=== PATIENT | female | born 1950 | race Caucasian/White ===

== ENCOUNTER → 2018-10-19 05:34 | Day surgery (SDC) | payer MEDICARE ==
[~2018-10-19 05:34] MED LIST: Acetaminophen TAB* 325 MG PO PRN; Buffered Lidocaine 1% SYRIN* 1 ML/SYRINGE INTRADERM ONE; Dexamethasone IV* 4 MG/ML 1 ML (4 MG) IV SLOW PU ONE; Dexamethasone IV* 4 MG/ML 1 ML (4 MG) ONE; DiMENhydriNATE IV* 50 MG/ML VIAL IV PUSH PRN; Famotidine IV* 10 MG/ML 2 ML (20 mg) IV ONE; Famotidine IV* 10 MG/ML 2 ML (20 mg) ONE; Heparin VIAL(*) 5000 UNITS/ML VIAL (FIVE THOUSAND) ONE; Ibuprofen TAB* 600 MG PO PRN; Lactated Ringers 1000 ML Bag* 1,000 ML IV SCH; Lidocaine 2% PF * 5 ML VIAL ONE; Midazolam* 1 MG/ML 2 ML VIAL (2 MG) ONE; Morphine VIAL* 4 MG/ML VIAL (1 ml vial) IV PRN; Naloxone* 0.4 MG/ML 1 ML VIAL IV PRN; Ondansetron INJ* 2 MG/ML VIAL ONE; PROCHLORPERAZINE INJ 5 MG/ML 2 ML VIAL IV PRN; Propofol* 10 MG/ML 20 ML BTL ONE; Silver Nitrate/Potassium Nitr* 1 EA STICK ONE; fentaNYL* 50 MCG/ML 2 ML VIAL (100 MCG VIAL) IV PRN; fentaNYL* 50 MCG/ML 2 ML VIAL (100 MCG VIAL) ONE; oxyCODONE/Acetamin 5/325 MG* TAB PO PRN
[2018-10-19 10:05] VITALS: BP 116/86
--- NOTE | 2018-10-19 11:22 | OP ---
DATE OF OPERATION: 10/19/18 - [facility] DATE OF : 46 SURGEON: Ebony Matos MD. ANESTHESIOLOGIST: Dr. Sher. PRE-OP DIAGNOSES: 1. Thickened endometrium on ultrasound. 2. Endometrial polyp on office biopsy. POST-OP DIAGNOSES: 1. Thickened endometrium on ultrasound. 2. Endometrial polyp on office biopsy. OPERATIVE PROCEDURE: Dilation, hysteroscopy, MyoSure polypectomy, curettage. ESTIMATED BLOOD LOSS: Less than 20 cc. SPECIMENS: Endometrial curettings and polyps. FLUIDS: Per Anesthesia. DRAINS: Deficit in the MyoSure was 400 cc. FINDINGS: Small anteverted uterus. No adnexal masses palpated. There were multiple endometrial polyps. There was a large polyp originating from the anterior wall of the fundus and another smaller one at the fundus. There were also two endocervical polyps. Both tubal ostia were visualized. Aside from the polyps, the endometrium appeared atrophic. There was grade 2 to 3 cystocele and a grade 2 rectocele. COMPLICATIONS: None. COUNTS: Sponge count correct x2. CONDITION: The patient was brought to recovery room awake, in stable condition. DESCRIPTION OF PROCEDURE: The patient was brought to the operating room. When general anesthesia was found to be adequate, the patient was prepped and draped in the usual sterile fashion in the dorsal lithotomy position. Time-out was performed. Exam under anesthesia was performed. Weighted speculum was placed in the vagina and the anterior lip of the cervix was grasped with a single- tooth tenaculum. The cervix was gently and easily dilated with graduated Hegar dilators. The uterus sounded to 7. The MyoSure was introduced with the above findings noted. MyoSure LITE was used to remove the 4 polyps seen in their entirety. The remainder of the endometrial cavity and endocervix appeared normal with atrophic endometrium. Both tubal ostia were visualized. All instruments were removed. The single-tooth tenaculum was removed from the anterior lip of the cervix. There was slight bleeding at the left tenaculum site. Pressure was held with a polyp forceps for several minutes. When the forceps was removed, excellent hemostasis was visualized. The patient was brought to the recovery room awake and in stable condition. [id number] #: [id number] [facility]
== END | disposition home or self-care (01) ==
LOC: OR 05:34
PROVIDERS: ATTEND Obstetrics & Gynecology
DX: N84.0 Polyp of corpus uteri (principal); I10 Essential (primary) hypertension; E78.5 Hyperlipidemia, unspecified; E03.9 Hypothyroidism, unspecified; D68.51 Activated protein C resistance; I69.398 Other sequelae of cerebral infarction; R20.8 Other disturbances of skin sensation
CPT/HCPCS: 88305; A9270-GY; J1100; J1644; J2250; J2405; J2704; J3010

== ENCOUNTER 2020-06-18 08:24 | Observation (INO) ==
[~2020-06-18 08:24] MED LIST changes: -Acetaminophen TAB* 325 MG PO PRN; +Buffered Lidocaine 1% SYRIN 1 ml INTRADERM ONE; -Buffered Lidocaine 1% SYRIN* 1 ML/SYRINGE INTRADERM ONE; +Dexamethasone IV 4 MG/ML VIAL 1 ml VIAL IV SLOW PU ONE; -Dexamethasone IV* 4 MG/ML 1 ML (4 MG) IV SLOW PU ONE; -Dexamethasone IV* 4 MG/ML 1 ML (4 MG) ONE; -DiMENhydriNATE IV* 50 MG/ML VIAL IV PUSH PRN; -Famotidine IV* 10 MG/ML 2 ML (20 mg) IV ONE; -Famotidine IV* 10 MG/ML 2 ML (20 mg) ONE; -Heparin VIAL(*) 5000 UNITS/ML VIAL (FIVE THOUSAND) ONE; -Ibuprofen TAB* 600 MG PO PRN; -Lactated Ringers 1000 ML Bag* 1,000 ML IV SCH; +Lactated Ringers 1000 ml BAG 1,000 ML IV SCH; -Lidocaine 2% PF * 5 ML VIAL ONE; -Midazolam* 1 MG/ML 2 ML VIAL (2 MG) ONE; -Morphine VIAL* 4 MG/ML VIAL (1 ml vial) IV PRN; -Naloxone* 0.4 MG/ML 1 ML VIAL IV PRN; -Ondansetron INJ* 2 MG/ML VIAL ONE; -PROCHLORPERAZINE INJ 5 MG/ML 2 ML VIAL IV PRN; -Propofol* 10 MG/ML 20 ML BTL ONE; -Silver Nitrate/Potassium Nitr* 1 EA STICK ONE; -fentaNYL* 50 MCG/ML 2 ML VIAL (100 MCG VIAL) IV PRN; -fentaNYL* 50 MCG/ML 2 ML VIAL (100 MCG VIAL) ONE; -oxyCODONE/Acetamin 5/325 MG* TAB PO PRN
[2020-06-18] MEDS ORDERED: Dexamethasone IV 4 MG/ML VIAL 1 ml VIAL ONE (08:52)
[2020-06-18] MEDS ORDERED: ceFAZolin 2 GM PREMIX 2 GM/50 ML BAG ONE (08:52)
[2020-06-18] MEDS ORDERED: fentaNYL 100 mcg/2 ml 50 MCG/ML VIAL ONE ×5 (10:51→14:35)
[2020-06-18] MEDS ORDERED: Midazolam 2 mg/2 ml VIAL 1 mg/ml 2 ml VIAL (2 mg) ONE (10:52)
[2020-06-18] MEDS ORDERED: Phenylephrine IV 10 MG/ML 1 ml VIAL ONE (10:53)
[2020-06-18] MEDS ORDERED: Lidocaine 2% PF 5 ML VIAL ONE ×2 (10:55→10:56)
[2020-06-18] MEDS ORDERED: ROPIVACAINE 5 MG/ML 30 ML BTL (0.5%) ONE ×2 (10:55→12:05)
[2020-06-18] MEDS ORDERED: Naloxone 0.4 mg VIAL 0.4 mg/ml 1 ml VIAL IV PRN (12:14)
[2020-06-18] MEDS ORDERED: Ondansetron 4 mg VIAL 2 MG/ML 2 ml VIAL IV PRN ×2 (12:14→13:21)
[2020-06-18] MEDS ORDERED: HYDROmorphone 1 MG/1 ML SYRINGE IV PRN (12:14)
[2020-06-18] MEDS ORDERED: Rocuronium 50 mg VIAL 10 mg/ml 5 ml VIAL (50 mg) ONE (12:20)
[2020-06-18] MEDS ORDERED: HYDROmorphone 1 MG/1 ML SYRINGE ONE ×2 (12:22→12:41)
[2020-06-18] MEDS ORDERED: Ondansetron ODT 4 mg TAB 4 MG TAB PO PRN (13:21)
[2020-06-18] MEDS ORDERED: Lactulose 30 ml UDC PO PRN (13:21)
[2020-06-18] MEDS ORDERED: diPHENhydraMINE IV 50 MG/ML 1 ml VIAL (BENADRYL) IV PRN (13:21)
[2020-06-18] MEDS ORDERED: diPHENhydraMINE 25 mg TAB PO PRN (13:21)
[2020-06-18] MEDS ORDERED: Morphine 2 MG/ML SYRINGE IV PRN (13:21)
[2020-06-18] MEDS ORDERED: Magnesium Hydroxide LIQ 30 ML UDC PO PRN (13:21)
[2020-06-18] MEDS ORDERED: Ondansetron 4 mg VIAL 2 MG/ML 2 ml VIAL ONE (13:22)
[2020-06-18] MEDS ORDERED: Butalb/Acetamin/Caff TAB 325-50-40MG PO PRN (13:25)
[2020-06-18] MEDS ORDERED: oxyCODONE/Acetamin 5/325 mg TAB ONE (14:35)
[2020-06-18] MEDS: fentaNYL 100 mcg/2 ml 50 MCG/ML VIAL IV PRN ×2 (14:40→15:08)
[2020-06-18] MEDS: oxyCODONE/Acetamin 5/325 mg TAB PO PRN ×2 (14:41→22:45)
[2020-06-18] MEDS ORDERED: Lactated Ringers 1000 ml BAG 1,000 ML IV SCH (16:06)
[2020-06-18] MEDS: Lactated Ringers 1000 ml BAG 1,000 ML IV SCH (16:07)
[2020-06-18] MEDS ORDERED: Metoclopramide 5 MG/ML VIAL (10 mg) ONE (17:42)
[2020-06-18] MEDS ORDERED: Metoclopramide 5 MG/ML VIAL (10 mg) IV PRN (17:45)
[2020-06-18] MEDS: ceFAZolin 1 GM ADVAN 1 GM in NS 0.9% 50 ML 50 ML IVPB SCH (19:54)
[2020-06-18] MEDS: Magnesium Hydroxide LIQ 30 ML UDC PO SCH (22:46)
[2020-06-19] MEDS: Lactated Ringers 1000 ml BAG 1,000 ML IV SCH (02:18)
[2020-06-19] MEDS: ceFAZolin 1 GM ADVAN 1 GM in NS 0.9% 50 ML 50 ML IVPB SCH ×2 (04:22→12:38)
[2020-06-19] MEDS: oxyCODONE/Acetamin 5/325 mg TAB PO PRN ×2 (06:14→12:38)
[2020-06-19 06:27] LABS: Hematocrit 33 % (35-47); Hemoglobin 10.7 g/dL (12.0-16.0); Platelet Count 162 10^3/uL (150-450)
[2020-06-19 06:52] LABS: CO2 Carbon Dioxide 20 mmol/L (22-32); Calcium 7.6 mg/dL (8.6-10.3); Chloride 111 mmol/L (101-111); Sodium 139 mmol/L (135-145)
[2020-06-19 06:56] LABS: Anion Gap 8 mmol/L (2-11)
[2020-06-19 06:58] LABS: BUN/Creatinine Ratio 22.2 (8-20); Blood Urea Nitrogen 16 mg/dL (6-24); EGFR African American 96.6 (>60); EGFR Non-African American 79.9 (>60); Glucose 125 mg/dL (70-100)
[2020-06-19] MEDS ORDERED: Vitamin THERAPEUTIC TAB PO SCH (09:00)
[2020-06-19] MEDS: Magnesium Hydroxide LIQ 30 ML UDC PO SCH (10:37)
[2020-06-19 11:30] VITALS: BP 99/65
[2020-06-21] MEDS ORDERED: Scopolamine PATCH Remove NOTE PATCH OFF ONE (16:35)
== END 2020-06-19 14:55 | disposition home or self-care (01) ==
LOC: INTOOBSV 08:24 → AA 08:24 → SSU 13:21
PROVIDERS: ADMIT Orthopaedic Surgery Adult Reconstructive Orthopaedic Surgery; ATTEND Orthopaedic Surgery Adult Reconstructive Orthopaedic Surgery

== ENCOUNTER 2020-08-02 01:44 | Inpatient (IN) ==
[2020-08-02] MEDS ORDERED: Ondansetron 4 mg VIAL 2 MG/ML 2 ml VIAL IV ONE (01:51)
[2020-08-02] MEDS ORDERED: fentaNYL 100 mcg/2 ml 50 MCG/ML VIAL IV ONE ×2 (01:51→03:32)
[2020-08-02] MEDS ORDERED: NS 0.9% 1000 ml BAG 2,000 ML IV ONE (01:51)
[2020-08-02] MEDS ORDERED: fentaNYL 100 mcg/2 ml 50 MCG/ML VIAL IV SLOW PU PRN (02:00)
[2020-08-02 02:16] LABS: ABS Lymphocytes 0.5 10^3/ul (1.0-4.8); ABS Monocytes 0.2 10^3/ul (0-0.8); ABS Neutrophils 8.8 10^3/ul (1.5-7.7); Eosinophil % 0.1 %; Hematocrit 43 % (35-47); Hemoglobin 13.8 g/dL (12.0-16.0); Lymphocyte % 5.6 %; Mean Corpuscular HGB Conc 32 g/dL (31-36); Mean Corpuscular Hemoglobin 29 pg (27-31); Mean Corpuscular Volume 90 fL (80-97); Platelet Count 231 10^3/uL (150-450); Red Blood Count 4.78 10^6 /uL (3.70-4.87); Red Cell Distribution Width 16 % (10-15); White Blood Count 9.5 10^3/uL (3.5-10.8)
[2020-08-02 02:34] LABS: Albumin 4.5 g/dL (3.2-5.2); Albumin/Globulin Ratio 1.6 (1-3); BUN/Creatinine Ratio 27.5 (8-20); C Reactive Protein 5.07 mg/L (<8.01); Calcium 9.5 mg/dL (8.6-10.3); EGFR African American 85.6 (>60); EGFR Non-African American 70.7 (>60); Globulin 2.9 g/dL (2-4); Potassium 3.9 mmol/L (3.5-5.0); Total Bilirubin 0.5 mg/dL (0.2-1.0); Total Protein 7.4 g/dL (6.4-8.9)
[2020-08-02] MEDS ORDERED: Prochlorperazine 5 mg/ml 2 ml VIAL (10 mg) IV ONE (03:32)
[2020-08-02] MEDS ORDERED: Iohexol 300 (CONTRAST) 10 ML SDV IV ONE (03:45)
[2020-08-02] MEDS: Morphine 2 MG/ML SYRINGE IV PRN ×2 (06:09→09:20)
[2020-08-02] MEDS: NS 0.9% 1000 ml BAG 1,000 ML IV SCH ×3 (06:10→22:49)
[2020-08-02] MEDS ORDERED: Enalaprilat IV 1.25 mg/ml 1 ml VIAL (1.25 MG) IV PRN (08:52)
[2020-08-02] MEDS: Ondansetron 4 mg VIAL 2 MG/ML 2 ml VIAL IV PRN ×2 (09:19→18:02)
[2020-08-02] MEDS: Famotidine IV 10 MG/ML 2 ml VIAL (20 mg) IV SLOW PU SCH ×2 (09:19→21:49)
[2020-08-02] MEDS: Enoxaparin 40 MG/0.4 ML SYR SUBCUT SCH (09:19)
[2020-08-02] MEDS: Fluticasone NASAL SPRAY 50MCG 16 gm SPRAY BTL BOTH NARES SCH (09:31)
[2020-08-02] MEDS ORDERED: Metoclopramide 5 MG/ML VIAL (10 mg) IV PRN (12:14)
[2020-08-02 23:07] LABS: Urine Appearance Cloudy; Urine Bilirubin Negative (Negative); Urine Blood 2+ (Negative); Urine Color Yellow; Urine Glucose Negative (Negative); Urine Ketones 1+ (Negative); Urine Nitrite Negative (Negative); Urine Protein Negative (Negative); Urine Specific Gravity 1.027 (1.010-1.030); Urine Urobilinogen Negative (Negative)
[2020-08-02 23:13] LABS: Urine Bacteria Absent (Absent); Urine Red Blood Cell 3+(>10/hpf) (Absent); Urine Squamous Epithelial Cell Present (Absent); Urine White Blood Cell 1+(6-10/hpf) (Absent)
[2020-08-03] MEDS ORDERED: Levothyroxine 100 MCG/5 ML VIAL IV SCH (06:00)
[2020-08-03 06:38] LABS: ABS Lymphocytes 1.1 10^3/ul (1.0-4.8); ABS Monocytes 0.6 10^3/ul (0-0.8); ABS Neutrophils 6.2 10^3/ul (1.5-7.7); Eosinophil % 0.2 %; Hematocrit 36 % (35-47); Hemoglobin 11.6 g/dL (12.0-16.0); Lymphocyte % 13.6 %; Mean Corpuscular HGB Conc 32 g/dL (31-36); Mean Corpuscular Hemoglobin 29 pg (27-31); Mean Corpuscular Volume 90 fL (80-97); Platelet Count 217 10^3/uL (150-450); Red Blood Count 4.01 10^6 /uL (3.70-4.87); Red Cell Distribution Width 16 % (10-15); White Blood Count 7.9 10^3/uL (3.5-10.8)
[2020-08-03 06:54] LABS: Albumin 3.3 g/dL (3.2-5.2); Albumin/Globulin Ratio 1.6 (1-3); BUN/Creatinine Ratio 22.4 (8-20); Calcium 7.9 mg/dL (8.6-10.3); EGFR Non-African American 86.8 (>60); Globulin 2.1 g/dL (2-4); Potassium 3.9 mmol/L (3.5-5.0); Total Bilirubin 0.4 mg/dL (0.2-1.0); Total Protein 5.4 g/dL (6.4-8.9)
[2020-08-03] MEDS: Enoxaparin 40 MG/0.4 ML SYR SUBCUT SCH (08:38)
[2020-08-03] MEDS: Fluticasone NASAL SPRAY 50MCG 16 gm SPRAY BTL BOTH NARES SCH (08:39)
[2020-08-03] MEDS: Famotidine IV 10 MG/ML 2 ml VIAL (20 mg) IV SLOW PU SCH (08:49)
[2020-08-04 07:13] LABS: Albumin 3.3 g/dL (3.2-5.2); Albumin/Globulin Ratio 1.6 (1-3); Calcium 8.1 mg/dL (8.6-10.3); EGFR Non-African American 96.7 (>60); Globulin 2.1 g/dL (2-4); Magnesium 1.7 mg/dL (1.9-2.7); Potassium 3.6 mmol/L (3.5-5.0); Total Bilirubin 0.3 mg/dL (0.2-1.0); Total Protein 5.4 g/dL (6.4-8.9)
[2020-08-04] MEDS: Enoxaparin 40 MG/0.4 ML SYR SUBCUT SCH (09:11)
[2020-08-04] MEDS: Fluticasone NASAL SPRAY 50MCG 16 gm SPRAY BTL BOTH NARES SCH (09:11)
[2020-08-04 15:54] VITALS: BP 128/73
== END 2020-08-04 17:05 | disposition home health service (06) | DRG 389 ==
LOC: ED 01:44 → MEDTELE 05:20
PROVIDERS: ADMIT Internal Medicine; ATTEND Student in an Organized Health Care Education/Training Program